=== PATIENT | male | born 1970 | race Caucasian/White ===

== ENCOUNTER 2023-05-02 23:13 | Emergency (ER) | payer OTHER ==
[~2023-05-02] VITALS: Ht 167.6 cm; Wt 76.7 kg
[2023-05-03] MEDS ORDERED: LIDOCAINE HCL 1% 20 ML VIAL TP ONE
[2023-05-03] MEDS ORDERED: NEOMY/BACITRA/POLYMYXIN B OINT UD PACKET TP ONE ×2 (00:06)
[2023-05-03] MEDS ORDERED: TDAP DIPH,PERTUSS,TET VAC/PF 0.5 ML DISP.SYRIN IM ONE ×2 (00:06)
[2023-05-03] MEDS ORDERED: LIDOCAINE HCL 1% 20 ML VIAL ONE (00:06)
[2023-05-03 00:49] VITALS: BP 128/92; O2SAT 97
== END 2023-05-03 00:49 | disposition home or self-care (01) ==
LOC: ER 23:29
DX: S61.212A Laceration without foreign body of right middle finger without damage to nail, initial encounter (principal); S61.214A Laceration without foreign body of right ring finger without damage to nail, initial encounter; E11.9 Type 2 diabetes mellitus without complications; W26.8XXA Contact with other sharp object(s), not elsewhere classified, initial encounter; Y93.89 Activity, other specified; Y92.89 Other specified places as the place of occurrence of the external cause; Y99.8 Other external cause status
CPT/HCPCS: 12002; 90471; 90715; 99283; J3490; A4606; A4663